=== PATIENT | female | born 1940 | race Caucasian/White ===

== ENCOUNTER 2019-10-24 14:35 | Inpatient (IN) ==
--- NOTE | 2019-10-24 15:38 | Diag Imaging Result Doc PS360 ---
EXAM: CT HEAD/C-SPINE W/O CONTRAST INDICATION: FALL/HEAD INJURY TECHNIQUE: This exam was performed using automated exposure control, adjustment of mA or kV according to patient size, and/or use of iterative reconstruction technique. COMPARISON: None. FINDINGS: Head: There is no definite acute infarct given the limited sensitivity of CT versus MRI. There is no discrete intracranial mass, mass effect, or intracranial hemorrhage. There is a small to moderate-sized scalp hematoma posteriorly on the right with subcutaneous droplets of gas indicating laceration. The calvaria is intact. C-spine: There is mild endplate degenerative change at multiple cervical levels with small marginal osteophyte formation. The central canal appears to be largely patent. Otherwise, there is no discrete fracture, subluxation, or intrinsic osseous lesion. The surrounding soft tissues are essentially unremarkable. IMPRESSION: 1.No evidence of acute intracranial pathology. 2.No evidence of fracture or other definite acute C-spine injury. Electronically signed by Antonio Navarrete 10/24/2019 3:35 PM
[2019-10-24 15:56] LABS: URINE SOURCE CLEAN CATCH
[2019-10-24 15:59] LABS: BASO# 0.02 X1000 (0.0-0.2); BASO% 0.1 % (0.0-0.8); EOS# 0.04 X1000 (0.0-0.7); EOS% 0.3 % (0.0-10.0); HEMATOCRIT 39.8 % (37.0-47.0); HEMOGLOBIN 13.8 g/dL (12.0-16.0); IMM GRAN# 0.04 X1000 (0.0-0.04); IMM GRAN% 0.3 % (0.0-0.5); LYMPH# 1.36 X1000 (1.2-3.4); LYMPH% 9.7 % (20.5-51.1); MCH 30.2 PG (27-31); MCHC 34.7 g/dL (33-37); MCV 87.1 FL (81-99); MONO# 0.89 X1000 (0.11-0.59); MONO% 6.4 % (1.7-9.3); MPV 8.8 FL (7.4-10.4); NEUT# 11.66 X1000 (1.4-6.5); NEUT% 83.2 % (42.2-75.2); PLT 312 X1000 (130-400); RBC 4.57 XMIL (4.2-5.4); RDW 12.9 % (11.5-14.5); WBC 14.01 X1000 (4.8-10.8)
[2019-10-24 16:02] LABS: BILIRUBIN URINE NEGATIVE (NEGATIVE); BLOOD URINE TRACE (NEGATIVE); COLOR YELLOW; GLUCOSE URINE >1000 mg/dL (NEGATIVE); KETONE URINE NEGATIVE (NEGATIVE); LEUKOCYTES URINE SMALL (NEGATIVE); NITRITE URINE NEGATIVE (NEGATIVE); PROTEIN URINE 30 mg/dL (NEGATIVE); SP GRAVITY URINE 1.031; TURBIDITY URINE CLEAR (CLEAR); UR EPITHELIAL CELLS <10 /HPF (<10); URINE BACTERIA 4+ /HPF; URINE RBC <10 /HPF (<10); URINE WBC <10 /HPF (<10); UROBILINOGEN URINE NORMAL (NORMAL)
[2019-10-24 16:11] LABS: INR 0.89; PROTIME 12.5 Seconds (11.0-16.0); PTT 30.2 Seconds (22.3-41.8)
[2019-10-24 16:17] LABS: AGAP 13; ALBUMIN 4.3 g/dL (3.5-5.0); ALKALINE PHOSPHATASE 151 U/L (32-104); BUN 11 mg/dL (8-22); CALCIUM 9.2 mg/dL (8.8-10.2); CHLORIDE 97 mmol/L (98-107); COSMO 280; CREATININE 0.8 mg/dL (0.5-0.9); ESTIMATED GFR > 60; GLUCOSE 314 mg/dL (70-104); GOT 21 U/L (10-30); GPT 28 U/L (10-36); SODIUM 134 mmol/L (136-145); TCO2 25 mmol/L (25-35); TOTAL PROTEIN 8.2 g/dL (6.3-8.3)
[2019-10-24] MEDS ORDERED: XYLOCAINE-MPF 1% INJ ONE (16:53)
[2019-10-24 17:10] LABS: HEMOGLOBIN A1C 10.3 % (4.8-6.0)
--- NOTE | 2019-10-24 17:32 | PROVIDER DOCUMENTATION ---
This chart was entered by Yaima Ernst Scribe, acting as scribe for Janiya Granda CRNP. HPI-Head Injury - General Chief Complaint: Head Injury Stated Complaint: FALL/ HEAD INJURY Time Seen by Provider: 10/24/19 14:59 Source: patient, EMS - History of Present Illness-Head Injury Nature of Presenting Problem: 79 y/o female presents to ED with laceration to occipital scalp onset just prior to arrival due to fall. Pt reports she got tangled up in her shopping cart, fell backwards, and hit her head on the asphalt. Pt states she has felt like her gait was off for the last few days. Pt denies loss of consciousness or any pain. Pt is alert and oriented. Head Injury Location: reports: occipital Other injuries associated with incident:: reports: none Quality of Pain: reports: aching Severity: reports: moderate Onset/Duration: reports: just prior to arrival Timing: reports: still present Method of Injury: reports: fell Any recent trauma/injury?: reports: none Loss of Consciousness: no loss of consciousness Modifying Factors: worse with: palpation Injury Associated Symptoms: reports: other (laceration to occipital scalp) [facility] Similar Symptoms Previously?: No Recently seen or treated by another doctor?: No Review of Systems - Adult - REVIEW OF SYSTEMS - ADULT Constitutional: denies: chills, fever Eyes: reports: no symptoms reported Ears, Nose, Mouth & Throat: reports: no symptoms reported Cardiovascular: denies: chest pain, palpitations Respiratory: denies: cough, shortness of breath Gastrointestinal: denies: abdominal pain, diarrhea, nausea, vomiting Genitourinary: reports: no symptoms reported Musculoskeletal: denies: back pain, joint pain Integumentary: reports: other (laceration to occipital scalp). denies: hives Neurological: denies: dizziness/vertigo, seizure Psychiatric: reports: no symptoms reported Endocrine: reports: no symptoms reported Hematologic/Lymphatic: reports: no symptoms reported Allergic/Immunologic: reports: no symptoms reported All Other Systems: Reviewed and Negative Past History - Adult - PAST MEDICAL HISTORY-ADULT Review of Records: reports: Old Records Reviewed, Nursing Assessment Review, Medications Reviewed Major Childhood Illnesses: reports: denies history - PRIOR SURGERIES/PROCEDURES Surgical/Procedure History: reports: none - IMMUNIZATION STATUS Childhood Immunizations: See Nurse Assessment Flu Vaccine: See Nurse Assessment - FAMILY HISTORY Family History: reviewed, not pertinent - SOCIAL HISTORY Smoking: non-smoker Substance Use: none/never Alcohol Use Frequency: never Living Situation: family Physical Exam- Neurological - Physical Exam-Neuro Initial Vital Signs Reviewed: Yes General Appearance: appears well, alert, no apparent distress Eye Exam: bilateral eye: normal inspection, PERRL, EOMI HENMT: moist mucous membranes Head Injury: lacerations (to occipital scalp), other (dried blood and hair matted around the laceration) Neck: non-tender, full range of motion Respiratory: chest non-tender, lungs clear, normal breath sounds Cardiovascular: normal peripheral pulses, regular rate, rhythm Abdominal Exam: normal bowel sounds, non tender, soft Extremity: normal range of motion, non-tender screw remover Exam: normal hearing, normal speech, PERRL Coordination/Gait: normal finger to nose, normal gait Motor/Sensory: no motor deficit, no sensory deficit, no pronator drift Neurologic: screw remover II-XII nml as tested, grossly normal, no motor/sensory deficits Integumentary: normal color, warm/dry Psych/Mental Status: normal mood/affect, normal thought content, normal thought process, oriented x 3 Progress - PLAN OF CARE/RESULTS Progress/Plan/Lab Results: Vital Signs - 8 hr 10/24/19 14:46 10/24/19 16:01 Temperature 98.5 F 98.3 F Pulse Rate 88 82 Respiratory Rate 18 18 Blood Pressure 193/93 155/94 O2 Sat by Pulse Oximetry 96 98 Laboratory Results - last 24 hr 10/24/19 10/24/19 10/24/19 15:41 15:41 15:41 WBC 14.01 H RBC 4.57 Hgb 13.8 Hct 39.8 MCV 87.1 MCH 30.2 MCHC 34.7 RDW Std Deviation 12.9 Plt Count 312 MPV 8.8 Immature Gran % (Auto) 0.3 Neut % (Auto) 83.2 H Lymph % (Auto) 9.7 L [place] % (Auto) 6.4 Eos % (Auto) 0.3 Baso % (Auto) 0.1 Immature Gran # (Auto) 0.04 Neut # (Auto) 11.66 H Lymph # (Auto) 1.36 [place] # (Auto) 0.89 H Eos # (Auto) 0.04 Baso # (Auto) 0.02 PT 12.5 INR 0.89 PTT (Actin FS) 30.2 Sodium 134 L Potassium 4.0 Chloride 97 L Carbon Dioxide 25 Anion Gap 13 BUN 11 Creatinine 0.8 Estimated GFR/1.73 m2 > 60 BUN/Creatinine Ratio 14 Glucose 314 H Estimat Average Glucose Hemoglobin A1c Calculated Osmolality 280 Calcium 9.2 Total Bilirubin 0.50 AST 21 ALT 28 Alkaline Phosphatase 151 H Total Protein 8.2 Albumin 4.3 Globulin 4.0 Albumin/Globulin Ratio 1.0 Urine Source Urine Color Urine Turbidity Urine pH Ur Specific [place] Urine Protein Ur Glucose (Stick) Ur Ketones (Stick) Urine Blood Urine Nitrite Urine Bilirubin Urobilinogen Dipstick Urine Leukocytes Urine WBC (Auto) Urine RBC (Auto) U Epithel Cells (Auto) Urine Bacteria (Auto) 10/24/19 10/24/19 15:41 15:44 WBC RBC Hgb Hct MCV MCH MCHC RDW Std Deviation Plt Count MPV Immature Gran % (Auto) Neut % (Auto) Lymph % (Auto) [place] % (Auto) Eos % (Auto) Baso % (Auto) Immature Gran # (Auto) Neut # (Auto) Lymph # (Auto) [place] # (Auto) Eos # (Auto) Baso # (Auto) PT INR PTT (Actin FS) Sodium Potassium Chloride Carbon Dioxide Anion Gap BUN Creatinine Estimated GFR/1.73 m2 BUN/Creatinine Ratio Glucose Estimat Average Glucose 249 Hemoglobin A1c 10.3 H Calculated Osmolality Calcium Total Bilirubin AST ALT Alkaline Phosphatase Total Protein Albumin Globulin Albumin/Globulin Ratio Urine Source CLEAN CATCH Urine Color YELLOW Urine Turbidity CLEAR Urine pH 6.0 Ur Specific [place] 1.031 Urine Protein 30 A Ur Glucose (Stick) >1000 A Ur Ketones (Stick) NEGATIVE Urine Blood TRACE A Urine Nitrite NEGATIVE Urine Bilirubin NEGATIVE Urobilinogen Dipstick NORMAL Urine Leukocytes SMALL A Urine WBC (Auto) <10 Urine RBC (Auto) <10 U Epithel Cells (Auto) <10 Urine Bacteria (Auto) 4+ Orders Category Date Time Status [facility] [place] Communication Order DIRECTED Care 10/24/19 15:59 Completed Saline Loc NOW Care 10/24/19 17:[address] HEAD/C-SPINE W/O CONTRAST [CT] Stat Exams 10/24/19 14:59 Completed A1C HGB W EST AVG GLUCOSE [CHEM] Stat Lab 10/24/19 15:41 Completed CBC WITH ELECTRONIC DIFF [HEME] Stat Lab 10/24/19 15:41 Completed COMPREHENSIVE METABOLIC PANEL [CHEM] Stat Lab 10/24/19 15:41 Completed PT [PROTIME WITH INR] [COAG] Stat Lab 10/24/19 15:41 Completed PTT [COAG] Urgent Lab 10/24/19 15:41 Completed UA NIMS W/REFLEX CULT [URINALYSIS] Stat Lab 10/24/19 15:44 Completed URINE CULTURE [RM] Routine Lab 10/24/19 16:42 Ordered Lidocaine 1% Pf [Xylocaine-Mpf 1%] Med 10/24/19 16:53 Discontinued 5 ml INJ NOW ONE Result Diagrams: 10/24/19 15:41 10/24/19 15:41 - CT/MRI 1 CT Study: Cervical Spine, Head Impression: See EMR Report ([facility] - [address] , [address], [place] [address] [facility] - [address] [place] [address] Department of Imaging Patient: SMOOTH SOLO Date: 10/24/19#: [id number] : 1940DM Status: REG ERAt#: [id number] Age/Sex: 79/FRoom/Bed: Loc: P.ED Ordering Physician: William Monteiro MD Family Physician: None,PCP Reason for Procedure: FALL/HEAD INJURY Signed EXAM: CT HEAD/C-SPINE W/O CONTRAST INDICATION: FALL/HEAD INJURY TECHNIQUE: This exam was performed using automated exposure control, adjustment of mA or kV according to patient size, and/or use of iterative reconstruction technique. COMPARISON: None. FINDI NGS: Head: There is no definite acute infarct given the limited sensitivity of CT versus MRI. There is no discrete intracranial mass, mass effect, or intracranial hemorrhage. There is a small to moderate-sized scalp hematoma posteriorly on the right with subcutaneous droplets of gas indicating lac eration. The calvaria is intact. C-spine: There is mild endplate degenerative change at multiple cervical levels with small marginal osteophyte formation. The central canal appears to be largely patent. Otherwise, there is no discrete fracture, subluxation, or intrinsic osseous lesion. The surrounding soft tissues are essentially unremarkable. IMPRESSION: 1.No evidence of acute intracranial pathology. 2.No evidence of fracture or other definite acute C-spine injury. Electronically signed by Antonio Navarrete 10/24/2019 3:35 PM 10/24/19 1535 Interpreting Physician: Antonio Navarrete MD Dictated Date/Time: 10/24/19 1534 cc: William Monteiro MD; None,PCP) - CONSULTS/PCP/HOSPITALIST Notification #1 *Consult/PCP/Hospitalist*: Dr. Fritz Time Discussed: 17:05 Consult Disposition: Admit Procedures - LACERATION/WOUND REPAIR/FB Posterior Head Wound Location: Other: 1.5cm Wound's Depth, Shape: linear Wound Explored/Foreign Body: contaminated moderately Irrigated with Saline?: Yes Anesthetic: 1%, Lidocaine/Xylocaine Volume of Anesthetic (ml's): 5 Wound Debrided: minimal Wound Repaired with: Long-Small Number of Sutures: 5 Departure - Departure Date of Disposition Decision: 10/24/19 Time of Disposition Decision: 17:05 DIAGNOSIS: HTN (hypertension), Fall, Head injury, Hematoma, Laceration, Newly diagnosed diabetes Disposition: ADMITTED INPATIENT 09 Certified Medical Emergency: Emergent Condition: Stable Referrals and Follow-Ups: None,PCP [Primary Care Provider] - - Critical Care Note This patient required my direct & personal management of CC.: No Attestation - Physician/ LAZ Attestation Patient care was provided by Advanced Practice Provider:: Yes Advanced Practice Provider:: Janiya Granda Advanced Practice Provider documentation review:: The Mid-level provider documentation, treatment plan and medical decision making was reviewed by the physician who agrees with all treatment and medical decision making by the MLP. The physician spent face to face time with patient:: Yes (Dr Monteiro) Advanced Practice Provider documentation review:: Supervising physician onsite and consulted in the evaluation and care of this patient. The physician did have a face to face encounter with the patient. This chart was documented by the indicated scribe, (Yaima Ernst, Arel[place]) and accurately reflects the services I performed and decisions made by me, Janiya Granda CRNP, as attested by the provider's signature.
[2019-10-24 19:22] LABS: MAGNESIUM 1.8 mg/dL (1.5-2.7)
--- NOTE | 2019-10-24 19:25 | HISTORY AND PHYSICAL ---
ADDENDUM: Patient seen and examined by myself. Full note dictated and discussed with nurse practitioner. Patient presented to the hospital. She has had a couple-day history of dizziness. It has only occurred while she has been up walking and states as though she feels like she is going to fall forward, but then it goes away. Did not think anything about it. She went to the grocery store today, and upon walking out of [facility], she actually fell backwards and required stitches in her scalp. We are going to admit her to the hospital for observation, place her on telemetry, follow her electrolytes, place her on IV fluids. Further orders as needed. cc: Reg Juarez MD
[2019-10-24] MEDS ORDERED: NS 1,000 ML IV SCH (20:45)
[2019-10-24] MEDS ORDERED: ZOFRAN IV PRN (20:45)
[2019-10-24] MEDS ORDERED: TYLENOL PO PRN (20:45)
[2019-10-24] MEDS ORDERED: APRESOLINE IV PRN (21:05)
[2019-10-24] MEDS: HUMULIN R (PARKWAY) SUBQ SCH (22:46)
[2019-10-24] MEDS: PRINIVIL PO SCH (22:46)
--- NOTE | 2019-10-25 01:12 | EKG Report ---
Test Performed on : 10/24/2019 7:31:26 PM Test Reason : Near-Syncope Blood Pressure : / mmHG Vent. Rate : 094 BPM Atrial Rate : 394 BPM P-R Int : 000 ms QRS Dur : 076 ms QT Int : 346 ms P-R-T Axes : 000 -11 017 degrees QTc Int : 432 ms Accelerated Junctional rhythm. Nonspecific ST abnormality Abnormal ECG No previous ECGs available Unconfirmed Result
--- NOTE | 2019-10-25 01:48 | HISTORY AND PHYSICAL ---
PRIMARY CARE PHYSICIAN: None. CHIEF COMPLAINT: Fall. HISTORY OF PRESENT ILLNESS: Ms Dykes is a 79-year-old female who reportedly does not have any known past medical history, though she does smoke cigarettes. The patient states that she has not seen a physician in a few years. She has reported over the past few days that she has had a few episodes where it sounded like she may be experiencing some dizziness. She states when she is standing, she feels like she is falling forward, though she goes to steps like she is trying to catch herself and adjust her body weight, though she has almost stumbled in fell reportedly due to when she does this her feet are not able to catch up with herself and her son reports that this has almost caused her to fall a few times. Though she states this is when she is already standing. She denies this occurring when she going from a lying to a sitting position or sitting to a standing position. She denies this occurring when she bends over and stands back up. Other than this imbalance/dizziness that she reports, she denies any other symptoms at this time. The patient states that she did get her blood pressure checked approximately a month ago and she believes the top number was 113 and the bottom number was 80 (113/80). The patient denied any previous known history of having hypertension or diabetes mellitus. She denies any headache, feeling lightheaded prior to today. She denied any near-syncope or syncopal episodes. She denied any visual disturbances. She denies any chest pain, shortness of breath, or cough. She denies any abdominal pain, nausea, vomiting, or diarrhea. She denies any hematochezia or melena. She denies any dysuria or urinary frequency. She denies any pain, numbness, tingling, or swelling in the extremities. She also denied any decreased thirst or decrease in her appetite. Today, prior to arrival, the patient was at the grocery store shopping, she was actually walking out her car when she said she was walking along, was pushing her buggy and said that she was standing up and then all she knew next was that she had fallen back and she was on the ground. The patient denied tripping. She stated that she was standing up and then she was down. She denied any predisposing symptoms such as dizziness, feeling lightheaded, feeling weak. The patient denied complete loss of consciousness. She stated she remembered falling to the ground. She did strike the back of her head, though she denied any loss of consciousness. She was brought in to the ER for further evaluation. Initial vital signs upon arrival were temperature 98.5 degrees, heart rate 88, respirations 18, blood pressure is 193/93, with a MAP of 126 and oxygen saturation was 96% on room air. The patient did have approximately total length of 2 cm laceration in a V shape on the left posterior side of her head. This previously had a wound repair performed by the nurse practitioner in the ER. She did receive lidocaine and then did receive 5 jaylan. The patient does have blood noted to the wound, the bleeding is controlled, there is no active bleeding noted. The patient is alert, oriented to person, place, time, and situation. She was able to answer questions appropriately and follow commands. Also noted, the patient did have some leukocytosis with a white blood cell count of 14,010, though she denies any fever, body aches, or chills. This may be reactive. Chemistry did reveal hyperglycemia. She does have a hemoglobin A1c of 10.3. Though CK and troponin were negative and awaiting EKG to be performed, at this time, given her what sounds to be near-syncopal episode prior to arrival. She also did have a head CT and cervical spine without contrast performed, which showed no evidence of acute intracranial pathology or fracture or definite acute C-spine injury. Urinalysis did show greater than a 1000 glucose, trace blood, small leukocytes, and 4+ bacteria. The patient is not reporting any urinary symptoms at this time. The patient is unsure of how long her blood pressure may have been elevated like it is upon her arrival today. We did perform orthostatics in the ER given her dizziness and near syncope. Lying blood pressure was 210/110 and her sitting blood pressure was 171/96, with a heart rate in the 88 to 105 with sitting. This did appear that the patient did tilt some, though the sitting to standing blood pressure was okay, she did not tilt. Blood pressure actually elevated some. Her most recent blood pressure is 160/100. We will monitor, though, if the patient's blood pressure does continue to elevate, we will go ahead and implement antihypertensives, though we would like to bring her blood pressure down slowly. She will be placed for admission for on observation. REVIEW OF SYSTEMS: A 14-point review of systems was conducted with the patient and all were negative, except for pertinent positives mentioned in the above HPI. PAST MEDICAL HISTORY: The patient denies any previous past medical history. PAST SURGICAL HISTORY: The patient denies any previous surgery. SOCIAL HISTORY: The patient does state she smokes approximately 3 packs per week, though she denies any alcohol or illicit drug use. Her son was present at bedside during my examination. FAMILY HISTORY: Positive for her mother passing away, from what I understand, with tuberculosis infection. She was unsure of her father's past medical history. She has a brother who had myocardial infarction. Another brother in a motor vehicle crash. Both of her sisters had unknown types of cancer. ALLERGIES: Patient has no known allergies. HOME MEDICATIONS: Patient denies any home medications. DIAGNOSTIC DATA/LABORATORY RESULTS: White blood cell count is 14,010, hemoglobin 13.8, hematocrit 39.8, platelet count is 312,000. PT 12.5, INR 0.89, PTT is 30.2. Sodium 134, potassium 4, chloride 97, serum bicarb is 25, BUN 11, creatinine 0.8 with GFR greater than 60. Glucose 314. Hemoglobin A1c is 10.3. Calcium 9.2, magnesium 1.8. Liver function tests within normal limits, except for alkaline phosphatase is slightly elevated at 151, CK 55, troponin 99. Urinalysis was obtained via clean catch, was positive for protein, greater than 1000 glucose, trace blood, small leukocytes, and too numerous to count white blood cells. Urine culture is pending at this time. EKG is also pending. We are awaiting this to be performed. CT head and C-spine without contrast. There is no evidence of acute intracranial pathology. There was a small to moderate-sized scalp hematoma posteriorly with subcutaneous droplets of gas indicating a laceration. There is no evidence of fracture or definite acute C-spine injury. There was mild endplate degenerative change at multiple cervical levels with small marginal osteophyte formation. PHYSICAL EXAMINATION: VITAL SIGNS: Temperature 98.3 degrees, heart rate 92, respirations 21, blood pressure is 160/100, oxygen saturation is 98% on room air. GENERAL: Ms. Dykes is a pleasant 79-year-old female, she was sitting in the ER stretcher, she was in no acute distress. She was awake, alert, and able answer questions appropriately. HEENT: Head normocephalic. Head does have an approximately 2 cm V-shaped laceration noted to her posterior head. This has had a wound repair performed with jaylan. Though there is blood noted, there is no active bleeding present at this time. There were no other head injuries noted. Pupils are equal, round, reactive to light, were 3 mm bilaterally and brisk. EOMs were intact. Oral mucosa is moist. Oropharynx is clear. NECK: Supple. Trachea midline. CARDIOVASCULAR: Patient has S1, S2 present. No murmurs, gallops, rubs appreciated. Regular rate and rhythm. PULMONARY: Patient has symmetrical chest expansion bilaterally. Lung sounds are clear to auscultation bilateral full hurtado. ABDOMEN: Soft, nontender, nondistended. Bowel sounds are present in all 4 quadrants, were slightly hyperactive. EXTREMITIES: No cyanosis or edema noted. Pulse, motor, and sensory were intact in all extremities. Radial and pedal pulses were 2+ bilaterally. INTEGUMENTARY: The patient's skin is pink, warm, and dry. NEUROLOGICAL: Patient is alert and oriented to person, place, time, and situation. She does move all extremities. There is no facial droop noted. There is no known speech disturbance present. Her speech was clear and understandable. EOMs were intact. She had equal hand grasps bilaterally with some possible generalized weakness. There was no arm drift noted. ASSESSMENT AND PLAN: 1. Near-syncope. At this time this is of uncertain etiology. We are going to continue to rule out any neurological or cardiovascular involvement. She will be placed on continuous cardiac telemetry with frequent vital signs and neurological checks. She has had a CT of the head performed which was negative. We will continue with carotid ultrasound and echocardiogram. Cardiac enzymes have been negative. We are awaiting the EKG at this time as well. We will continue to monitor this closely. 2. Hypertension. The patient denies any previous history of elevated blood pressure. She states the blood pressure she had taken 1 month ago was within normal limits at 113/80. We will monitor this. Though if this remains elevated, we will go ahead and treat her blood pressure, though will want to bring it down slowly. We did orthostatics, she did slightly tilt upon the lying to sitting. We will provide some gentle intravenous hydration. We will repeat orthostatics in the morning. 3. New onset diabetes mellitus. We have placed a sliding scale regular insulin per low-dose protocol. We will do pattern fingerstick blood sugar. She has been placed on a diabetic diet. 4. Fall from a standing position, likely secondary to possible near-syncope. We will continue with treatment as mentioned above in #1. 5. Head injury with approximately 2 cm V-shaped laceration in the posterior head. This has been repaired by the ER nurse practitioner with jaylan. We will place an order to keep the wound clean and dry. The jaylan will need to be removed. This can be done as an outpatient or she can return to the ER. We will provide instructions upon discharge. 6. Nicotine dependence. We will counselor dormitory the patient on the importance of smoking cessation throughout her admission and upon discharge. 7. Deep vein thrombosis prophylaxis. We have provided sequential compression devises. Dictated by SUMMER Atkins for Reg Juarez MD cc: Reg Juarez MD
[2019-10-25 05:44] LABS: BASO# 0.02 X1000 (0.0-0.2); BASO% 0.2 % (0.0-0.8); EOS# 0.04 X1000 (0.0-0.7); EOS% 0.4 % (0.0-10.0); HEMATOCRIT 34.8 % (37.0-47.0); HEMOGLOBIN 11.6 g/dL (12.0-16.0); IMM GRAN# 0.01 X1000 (0.0-0.04); IMM GRAN% 0.1 % (0.0-0.5); LYMPH# 1.91 X1000 (1.2-3.4); MCH 29.4 PG (27-31); MCHC 33.3 g/dL (33-37); MCV 88.3 FL (81-99); MONO# 0.93 X1000 (0.11-0.59); MONO% 8.3 % (1.7-9.3); MPV 8.8 FL (7.4-10.4); NEUT# 8.34 X1000 (1.4-6.5); PLT 296 X1000 (130-400); RBC 3.94 XMIL (4.2-5.4); WBC 11.25 X1000 (4.8-10.8)
[2019-10-25 06:03] LABS: AGAP 12; ALBUMIN 3.3 g/dL (3.5-5.0); ALKALINE PHOSPHATASE 108 U/L (32-104); BUN 15 mg/dL (8-22); CALCIUM 8.4 mg/dL (8.8-10.2); CHLORIDE 104 mmol/L (98-107); COSMO 284; CREATININE 0.7 mg/dL (0.5-0.9); ESTIMATED GFR > 60; GLUCOSE 267 mg/dL (70-104); GOT 17 U/L (10-30); GPT 21 U/L (10-36); POTASSIUM 3.9 mmol/L (3.5-5.1); SODIUM 137 mmol/L (136-145); TCO2 21 mmol/L (25-35); TOTAL PROTEIN 6.7 g/dL (6.3-8.3)
[2019-10-25] MEDS: PRINIVIL PO SCH ×2 (09:19→21:05)
[2019-10-25] MEDS: GLUCOPHAGE PO SCH ×2 (09:19→17:20)
[2019-10-25] MEDS: HUMULIN R (PARKWAY) SUBQ SCH ×4 (11:45→21:10)
--- NOTE | 2019-10-25 12:40 | PROGRESS NOTE ---
DATE: 10/25/2019 SUBJECTIVE: Patient notes that she is feeling tremendously better. Denies any fevers, chills, cough, congestion. Notes that her shortness of breath has improved, although she still gets fatigued attempting to walk to the restroom. PHYSICAL EXAMINATION: Temperature 98 degrees, pulse 90, respiratory rate 18, BP 121/60. General: Patient is pleasant. She is in no current respiratory distress. HEENT: Normocephalic. Neck: Supple. Cardiovascular: Regular rate. Chest: Clear. Abdomen: Soft. Extremities: Moves all extremities. ASSESSMENT: 1. New onset diabetes with an A1c of 10.2. 2. Syncopal episode of undetermined origin. Carotid and echocardiogram are still pending. 3. Hypertension. 4. Leukocytosis, improved. PLAN: We are going to continue patient in the hospital. Discussed with her a diabetic diet. We will start will check ultrasound of the carotid and we will follow. cc: Reg Juarez MD MTDD
[2019-10-26] MEDS: HUMULIN R (PARKWAY) SUBQ SCH ×4 (06:17→21:24)
[2019-10-26] MEDS: GLUCOPHAGE PO SCH ×2 (08:10→17:30)
[2019-10-26] MEDS: PRINIVIL PO SCH ×2 (08:10→21:25)
[2019-10-26] MEDS: ROCEPHIN 1 GM in NS 50 ML IV SCH (08:11)
--- NOTE | 2019-10-26 10:37 | Vascular Study Report ---
EXAM: Carotid Ultrasound HISTORY: Near-Syncope TECHNIQUE: Carotid Doppler ultrasound COMPARISON: None. FINDINGS: Right: There is interval thickening in the common carotid artery. No occlusion or stenosis. Minimal plaque in the bulb. Peak systolic velocity in the internal carotid arteries 118 cm/s. The ICA/CCA ratio is 1.23. Antegrade vertebral flow. Left: There is thickening in the common carotid artery. No occlusion or stenosis. Minimal plaque in the bulb. Stenosis less than 30%. Peak systolic velocity in the internal carotid artery is 88 cm/s. The ICA/CC ratio 0.64. Antegrade vertebral flow. IMPRESSION: Mild stenosis in the right bulb of less than 50% Electronically signed by Sg Churchill 10/26/2019 10:35 AM
--- NOTE | 2019-10-26 14:26 | ECHO REPORT ---
ORDER DATE: 10/25/2019 INDICATION: Near syncope. FINDINGS: 1. The right atrium appears normal in size at 3.2 cm. 2. Trace tricuspid regurgitation. Insufficient data to estimate RV systolic pressure. 3. Normal RV size and systolic function. 4. No significant pulmonic insufficiency. 5. Normal left atrial size with a volume index of 21. 6. No mitral valve prolapse. Trace mitral regurgitation. No evidence of mitral stenosis. 7. Normal LV size, end-diastolic dimension of 4.1 cm. Normal wall thicknesses with a posterior and interventricular septal wall thickness of 0.7 and 1.1 cm respectively. Normal LV systolic function. The estimated EF is greater than or equal to 70%. There is some suggestion on some views of hyperdynamic function. 8. Aortic valve is poorly visualized on 2-dimensional imaging, but based on Doppler evaluation there does not appear to be any significant degree of stenosis or insufficiency. 9. Aorta appears normal in visualized segments. 10. No pericardial effusion seen. 11. There was no left ventricular outflow tract gradient on this study. Valsalva was not assessed. 12. Grade 1 diastolic dysfunction. 13. Normal IVC size with collapse noted. cc: Ruddy Yip MD
--- NOTE | 2019-10-26 22:42 | PROGRESS NOTE ---
DATE: 10/26/2019 SUBJECTIVE: Patient notes that she is feeling better. She has been up once to the restroom and does not seem to have had dizziness, but she has not been out of bed otherwise. EXAM: Vital signs: Temperature 98.0, pulse 84, respiratory rate 18, BP 137/59. General: Patient is pleasant, currently in no respiratory distress. HEENT: Normocephalic. Neck: Supple. Cardiovascular: Regular rate. Chest: Clear, nonlabored. Abdomen: Soft, nondistended. Extremities: Moves all extremities. Neurologic: No focal changes. Skin: Warm and dry. No rashes. ASSESSMENT: 1. Vertigo likely secondary to urinary tract infection. 2. Sepsis secondary to urinary tract infection due to metabolic encephalopathy and leukocytosis. 3. Klebsiella urinary tract infection. We will switch to Cipro. 4. Hypertension. 5. New onset diabetes. We will continue metformin. PLAN: We are going to continue the patient in the hospital today. Wean her off oxygen. Change her to Cipro. Continue metformin for her diabetes with an A1c at 10.2. Continue lisinopril and attempt to get out of bed. Hopefully, she will improve and can discharge home in the next 1 or 2 days. cc: Reg Juarez MD
[2019-10-27] MEDS: HUMULIN R (PARKWAY) SUBQ SCH (06:52)
[2019-10-27] MEDS: ROCEPHIN 1 GM in NS 50 ML IV SCH (06:52)
[2019-10-27 07:49] VITALS: BP 126/56
[2019-10-27] MEDS: PRINIVIL PO SCH (08:59)
[2019-10-27] MEDS: GLUCOPHAGE PO SCH (08:59)
[2019-10-27] MEDS ORDERED: CIPRO PO SCH (09:00)
--- NOTE | 2019-10-28 09:57 | DISCHARGE SUMMARY ---
ADMISSION DATE: 10/26/2019 DISCHARGE DATE: 10/27/2019 DISCHARGE DIAGNOSES: 1. New-onset diabetes with an A1c of 10.2. 2. New-onset hypertension. 3. Klebsiella urinary tract infection. 4. Fall with recent head laceration. CONSULTATIONS: None. PROCEDURES: None. BRIEF HOSPITAL COURSE: The patient is a 79-year-old female who presented to the hospital with leukocytosis, white count of 15, it was 11 on last check. She was diagnosed with diabetes [*] blood pressures were elevated, easily controlled with lisinopril. Thankfully, she had an uneventful hospital course. She was admitted to the hospital, treated in the usual fashion, placed on metformin. Blood sugars were in the 150s. Placed her on lisinopril. Blood pressures were improved on discharge. She was able to ambulate without difficulty. DISPOSITION: The patient will be discharged home. Discussed with her the importance of controlling diet. Dietitian was consulted. The patient was started on metformin and lisinopril, and will discharge her home on those. She also was placed on antibiotics for her Klebsiella UTI [*]. TIME SPENT: Greater than 30 minutes were spent in total care. cc: Reg Juarez MD
== END 2019-10-27 09:50 | disposition home or self-care (01) | DRG 690 ==
LOC: P.ED 14:35 → P.MEDSURG 20:12 → INTOOBSV 20:12
PROVIDERS: ATTEND Family Medicine